=== PATIENT | male | born 1940 | race Caucasian/White ===

== ENCOUNTER → 2019-04-17 11:34 | Outpatient (CLI) | payer MEDICARE, SELFPAY ==
[2019-04-20 19:59] LABS: Lamotrigine Lamictal 4.4 mcg/mL (4.0-18.0)
== END ==
PROVIDERS: Visit Provider Specialist
DX: G40.109 Localization-related (focal) (partial) symptomatic epilepsy and epileptic syndromes with simple partial seizures, not intractable, without status epilepticus (principal)
CPT/HCPCS: 36415; 80175

== ENCOUNTER → 2020-01-09 10:46 | Outpatient (CLI) | payer MEDICARE, SELFPAY ==
--- NOTE | 2020-01-09 10:48 | DI.RAD.S_ITS ---
PROCEDURE: XR HIP W PEL IF DONE RT 2V INDICATIONS: r hip pain TECHNIQUE: AP view of the pelvis and frogleg lateral view of the right hip were acquired. COMPARISON: None. FINDINGS: Bones: There is mild spurring of the lateral acetabulum bilaterally, compatible with mild degenerative changes. Mild degenerative changes also seen in the included portion of the lower lumbar spine. The sacrum is obscured by overlying bowel gas. Soft tissues: No suspicious soft tissue calcifications or masses. Redundant colon is partially visualized with moderate stool and air-filled loops of bowel overlying the lower abdomen and pelvis. 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 No acute osseous abnormality is seen. Dictated by: Ger Awan M.D. on 01/09/2020 at 11:07 Approved by: Ger Awan M.D. on 01/09/2020 at 11:09
== END ==
PROVIDERS: Referring Provider Physician Assistant; Visit Provider Physician Assistant
DX: M25.551 Pain in right hip (principal); M16.0 Bilateral primary osteoarthritis of hip
CPT/HCPCS: 73502

== ENCOUNTER → 2020-03-09 12:36 | Outpatient (CLI) | payer MEDICARE, SELFPAY ==
--- NOTE | 2020-03-09 | DI.MRI.S_ITS ---
PROCEDURE: MR LUMBAR SPINE WO CON INDICATIONS: Radiculopathy, lumbar region TECHNIQUE: Noncontrast sagittal T1 spin echo and T2 fast echo, sagittal STIR, axial T1 and T2 fast spin echo through the lumbar spine. In cases with scoliosis, additional coronal T2 fast spin echo may be performed. COMPARISON: None. FINDINGS: Image quality: Diagnostic, with note made of motion artifact. Alignment and Curvature: There is normal bony alignment. Bone Marrow: Marrow is of normal overall signal. No acute vertebral body compression fractures. Spinal Cord: Conus medullaris terminates at the L1 level. Visualized cord demonstrates normal signal and size. Paraspinous Soft Tissues: No paravertebral masses. T12-L1: Normal appearance. L1-L2: Normal appearance. L2-L3: The disc height and disk signal are well-preserved. Mild generalized disc bulge is seen. Mild to moderate facet hypertrophy is seen. There is moderate left-sided and no right-sided neural foraminal narrowing seen. No significant central canal narrowing is seen. L3-L4: Moderate loss of disc height is seen. Loss of disc signal is seen. Moderate disc bulge is seen, with a central disc protrusion. Mild to moderate facet hypertrophy is seen at this level. There is at least moderate bilateral neural foraminal narrowing seen, right worse than left. There is a degree of compression seen upon the exiting nerve roots. Mild central canal narrowing is seen. L4-L5: Mild loss of disc height is seen. Loss of disc signal is seen. Mild to moderate disc bulge is seen, with a mild central disc protrusion. Mild to moderate facet hypertrophy is seen. There is at least moderate left-sided and moderate to severe right-sided neural foraminal narrowing seen. There is a degree of compression seen upon the exiting L4 nerve roots, right worse than left. Mild to moderate central canal narrowing is seen. L5-S1: The disc height is well-preserved. Loss of disc signal is seen at this level. Mild disc bulge is seen, with a mild central disc protrusion. Moderate facet joint hypertrophy is seen. There is at least moderate bilateral neural foraminal narrowing seen, left worse than right. Mild central canal narrowing is seen. IMPRESSION: Lower lumbar spine degenerative changes are seen, which are overall most prominent at L3-4 and L4-5. Dictated by: Ambrose Palomares M.D. on 03/09/2020 at 15:48 Approved by: Ambrose Palomaers M.D. on 03/09/2020 at 15:51
== END ==
PROVIDERS: Referring Provider Orthopaedic Surgery; Visit Provider Orthopaedic Surgery
DX: M47.26 Other spondylosis with radiculopathy, lumbar region (principal)
CPT/HCPCS: 72148

== ENCOUNTER → 2021-06-21 11:57 | Outpatient (CLI) | payer MEDICARE, SELFPAY ==
--- NOTE | 2021-06-21 | DI.MRI.S_ITS ---
PROCEDURE: MR HIP RT WO CON INDICATIONS: Non-Hodgkin lymphoma, unspecified, unspecified site TECHNIQUE: Noncontrast coronal T1 spin echo and STIR through the bony pelvis. Coronal and axial T2 fast spin echo with fat saturation, sagittal T1 spin echo, and oblique axial T2 fast spin echo with fat saturation through the hip. COMPARISON: None. FINDINGS: Image quality: Some images are degraded by motion artifact. Bones and joints: Heterogeneous bone marrow marrow of the pelvic ring and proximal femurs show throughout. No avascular necrosis of the femoral heads. Tendons and ligaments: The gluteus medius and minimus tendons appear intact, without associated muscle atrophy. T2 hyperintense signal within the gluteus medius musculotendinous junction, concerning for partial tear. Trace fluid adjacent to the greater trochanter, which may reflect minimal bursitis. The nearby proximal iliotibial band also appears intact. The iliopsoas tendon appears intact. The origin of the hamstring tendon is intact at the ischial tuberosity. T2 hyperintense signal is seen at the attachment, compatible with tendinopathy. The ligamentum teres appears intact where visualized. Labrum and cartilage: Linear signal within the superior anterior labrum, concerning for tear/degenerative change. Cartilage surface of the femoral head appears thinned. The alpha angle of the femur is within normal limits at less than 55 degrees. Soft tissues: Visualized muscles demonstrate normal bulk and internal signal. Quadratus femoris muscle demonstrates no internal edema to suggest ischiofemoral impingement. The proximal sciatic neurovascular bundle appears normal adjacent to the hamstring tendons. No free pelvic fluid. Bladder wall thickness is normal. Genitourinary structures and bowel loops appear normal where visualized. IMPRESSION: 1. Partial tear of the gluteus medius muscle as detailed above. 2. Mild hamstring tendinopathy at the ischial attachment. 3. Degenerative tear/change of the superior, anterior labrum. 4. Minimal greater trochanteric bursitis. Dictated by: Pee Brown M.D. on 06/21/2021 at 13:44 Approved by: Pee Brown M.D. on 06/21/2021 at 13:52
== END ==
PROVIDERS: PCP Internal Medicine; Referring Provider Orthopaedic Surgery; Visit Provider Orthopaedic Surgery
DX: C85.90 Non-Hodgkin lymphoma, unspecified, unspecified site (principal); S76.011A Strain of muscle, fascia and tendon of right hip, initial encounter; S73.191A Other sprain of right hip, initial encounter; M70.71 Other bursitis of hip, right hip
CPT/HCPCS: 73721

== ENCOUNTER → 2023-03-22 15:25 | Outpatient (ROUT) | payer MEDICARE, SELFPAY | PROVIDERS: PCP Internal Medicine; Visit Provider Dermatology | DX: Z48.02 Encounter for removal of sutures (principal) | CPT/HCPCS: 87070; 87075; 87077; 87186; 87205 ==

== ENCOUNTER 2025-04-17 10:52 | Observation (INO) | payer MEDICARE, SELFPAY ==
[2025-04-17] VITALS (14 sets, daily range): BP systolic 135–163; BP diastolic 72–81; PULSE 67–92; RESP 17–29; TEMP 36.4–36.8; O2SAT 88–97; BMI 23.7
--- NOTE | 2025-04-17 11:13 | DI.RAD.S_ITS ---
PROCEDURE: XR CHEST 1V INDICATIONS: Shortness of breath TECHNIQUE: One view of the chest was acquired. COMPARISON: None. FINDINGS: Surgical changes and devices: Right chest Port-A-Cath. Lungs and pleura: Moderate left pleural effusion with underlying left basilar atelectasis versus consolidation. Mediastinum: Mediastinal contours appear normal. Heart size is normal. Bones and chest wall: No suspicious bony lesions. Overlying soft tissues appear unremarkable. IMPRESSION: Moderate left pleural effusion with underlying left basilar atelectasis versus consolidation. Dictated by: Robin Moody M.D. on 04/17/2025 at 11:40 Approved by: Robin Moody M.D. on 04/17/2025 at 11:41
--- NOTE | 2025-04-17 11:13 | EKG_ITS ---
[address] [address] Test Date: 2025-04-17 Pat Name: Donal Echols Department: [facility] Room: Gender: Male Interactive [employer] Specialist: BENEDICTO : 1940 Requested By: Order Number: [id number] Reading MD: Kalpesh Ortega MD Measurements Intervals [place] Rate: 71 P: 53 [place]: 150 QRS: 46 QRSD: 94 T: 69 QT: 412 QTc: 447 Interpretive Statements Normal sinus rhythm Septal infarct , age undetermined Electronically Signed On 04-17-2025 14:36:43 PST by Kalpesh Ortega MD
[2025-04-17 11:18] LABS: Add Manual Diff / Slide Review NO; Hematocrit 37.7 % (41-53); Hemoglobin 12.8 g/dL (13.5-17.5); Lymphocytes Absolute Auto 1000 /uL (1100-4500); Mean Corpuscular HGB Conc 34.0 % (30-36); Mean Corpuscular Hemoglobin 29.5 PG (26-34); Mean Corpuscular Volume 86.8 fL (80-100); Platelet Count 334 X10^3/uL (150-400)
[2025-04-17 11:19] LABS: INR 1.1 (0.9-1.3); Prothrombin Time 12.3 SECONDS (9.4-12.5)
[2025-04-17 11:27] LABS: Alanine Aminotransferase 28 IU/L (<50); Alkaline Phosphatase 77 U/L (38-126); Blood Urea Nitrogen 20 mg/dL (9-20); Calcium 8.8 mg/dL (8.4-10.2); Chloride 101 mmol/L (98-107); Estimated Glomerular Filt Rate 57 mL/min (>60); Glucose 88 mg/dL (70-99); HEMOLYSIS < 15 (0-50); Lactate (Lactic Acid) 1.1 mmol/L (0.7-2.1); Potassium 4.2 mmol/L (3.4-5.1); Sodium 136 mmol/L (137-145); Total Protein 6.7 g/dL (6.3-8.2)
[2025-04-17 11:28] LABS: Albumin 3.8 g/dL (3.5-5.0); Albumin Globulin Ratio 1.3 (1.0-2.8); Carbon Dioxide 26 mmol/L (22-32); Globulin 2.9 g/dL (1.7-4.1)
[2025-04-17 11:39] LABS: NT-proBNP (BNP-Adult 18+) 128 pg/mL (<450); Troponin I < 0.012 ng/mL (0.01-0.034)
--- NOTE | 2025-04-17 11:51 | ED.SOB ---
HPI - SOB/Dyspnea <Holley Esteban PA-C - Last Filed: 04/17/25 14:51> General Chief Complaint: Shortness of Breath/Dyspnea Stated Complaint: SOB 2 weeks Time Seen by Provider: 04/17/25 10:53 Source: patient Mode of arrival: Ambulatory Limitations: no limitations History of Present Illness HPI Narrative: Mr. Echols is a very pleasant 84-year-old male with a past medical history of lymphoma in remission followed by [facility] Dr. 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 Patient reports he walks 2 miles every day and he noticed 2 weeks ago that he was starting to become more short of breath. Yesterday was the 1st day he was only able to do half of his normal walk. He also notices feeling short of breath when he bends/leans forward. He is not short of breath at rest. He does not have any issues lying flat. He has no leg swelling. He denies chest pain, fevers, chills or flu-like symptoms, he is occasionally coughing and clearing his throat. He denies abdominal pain nausea vomiting diarrhea constipation. He denies smoking, asthma or COPD, CAD or CVA history. No history of VTE or blood thinner use. No calf pain or swelling. Related Data Home Medications ?Medication ?Instructions ?Recorded ?Confirmed FLOMAX 0.4 mg PO DAILY ##0 06/17/07 04/17/25 Loratadine (Claritin) 10 mg PO .BROOKE ##0 06/17/07 04/17/25 vitamins A,C,N-jvmt-yhnyli 4,296 1 cap PO BID 10/04/17 04/17/25 mcg-226 mg-90 mg capsule (PreserVision AREDS) Simvastatin (Zocor) 20 mg PO DAILY ##0 01/09/20 04/17/25 lamotrigine 100 mg tablet 75 mg PO BID 01/09/20 04/17/25 Allergies Allergy/AdvReac Type Severity Reaction Status Date / Time No Known Drug Allergies Allergy Verified 04/17/25 11:06 Review of Systems <Holley Esteban PA-C - Last Filed: 04/17/25 14:51> Review of Systems ROS Unobtainable: All systems reviewed & are unremarkable except as noted in HPI and below Patient History <Holley Esteban PA-C - Last Filed: 04/17/25 14:51> Social History household members: spouse Smoking Status: Never smoker alcohol intake: current Smoking Status: Never smoker Exam <Holley Esteban PA-C - Last Filed: 04/17/25 14:51> Narrative Exam Narrative: GENERAL: 84 year old patient appears stated age. Well-developed patient, in no acute distress. HEAD: Atraumatic. Normocephalic. EYES: No scleral icterus. No injection or drainage. NECK: Trachea midline. Cervical ROM intact. CARDIOVASCULAR: Regular rate and rhythm. RESPIRATORY: ?Nonlabored respirations. ?Speaking in clear, full sentences. ?Diminished breath sounds left lower lobe. No wheezing, rales, or rhonchi. ? GASTROINTESTINAL: Abdomen soft, non-tender, nondistended. EXTREMITIES: No LE edema or calf tenderness. NEURO: AOx3. ?Clear speech. ?Moves all 4 extremities appropriately. SKIN: No rash or erythema of visible areas Initial Vital Signs Initial Vital Signs: Vital Signs Pulse Rate 86 04/17/25 10:59 Pulse Oximetry 93 04/17/25 10:59 <Halle Prasad DO - Last Filed: 04/17/25 18:52> Initial Vital Signs Initial Vital Signs: Vital Signs Pulse Rate 86 04/17/25 10:59 Pulse Oximetry 93 04/17/25 10:59 Course <Holley Esteban PA-C - Last Filed: 04/17/25 14:51> Orders Ordered: ED Orders 04/17/25 11:05 Complete Blood Count AUTO DIFF Stat Comprehensive Metabolic Panel Stat Lactate (Lactic Acid) Stat NT-proBNP (BNP-Adult 18+) Stat Prothrombin Time INR Stat Troponin I Stat 04/17/25 11:13 XR chest 1V Stat EKG-12 Lead Stat Measure peak expiratory flow STAT RT Consult Eval and Treat STAT 04/17/25 12:06 CT chest w con Stat 04/17/25 12:25 Urine Microscopic Stat Acetaminophen (Acetaminophen 325 Mg Tablet) 650 mg PO Q6H PRN PRN Reason: Fever/Mild Pain (1-3) Atorvastatin Calcium (Atorvastatin 20 Mg Tablet) 10 mg PO DAILY [facility] Lamotrigine (Lamotrigine 100 Mg Tablet) 75 mg PO BID [facility] Loratadine (Loratadine 10 Mg Tablet) 10 mg PO DAILY [facility] Naloxone HCl (Naloxone 0.4 Mg/Ml Vial) 0.2 mg IV Q2MIN PRN PRN Reason: Opiate Reversal Oxycodone HCl (Oxycodone Ir 5 Mg Tablet) 5 mg PO Q4HR [facility] Last Admin: 04/17/25 17:49 Dose: Not Given Documented By: MM Tamsulosin HCl (Tamsulosin 0.4 Mg Capsule) 0.4 mg PO DAILY [facility] Vital Signs Vital signs: Vital Signs - 8 hr 04/17/25 10:59 04/17/25 11:00 04/17/25 11:00 Temperature Pulse Rate 86 79 Respiratory Rate Blood Pressure 163/81 H Pulse Oximetry 93 94 Oxygen Delivery Method 04/17/25 11:05 04/17/25 11:30 04/17/25 11:30 Temperature 97.6 F Pulse Rate 81 72 Respiratory Rate 18 Blood Pressure 163/81 H 135/72 Pulse Oximetry 97 96 Oxygen Delivery Method Room Air 04/17/25 12:00 04/17/25 12:00 04/17/25 12:25 Temperature Pulse Rate 71 92 H Respiratory Rate 29 H 28 H Blood Pressure 141/76 H Pulse Oximetry 96 88 L Oxygen Delivery Method Room Air 04/17/25 12:30 04/17/25 13:00 04/17/25 13:30 Temperature Pulse Rate 72 69 71 Respiratory Rate 20 22 Blood Pressure Pulse Oximetry 96 97 97 Oxygen Delivery Method 04/17/25 14:00 04/17/25 14:30 04/17/25 15:00 Temperature Pulse Rate 67 69 78 Respiratory Rate 18 20 18 Blood Pressure Pulse Oximetry 95 97 96 Oxygen Delivery Method <Halle Prasad, - Last Filed: 04/17/25 18:52> Orders Ordered: ED Orders 04/17/25 11:05 Complete Blood Count AUTO DIFF Stat Comprehensive Metabolic Panel Stat Lactate (Lactic Acid) Stat NT-proBNP (BNP-Adult 18+) Stat Prothrombin Time INR Stat Troponin I Stat 04/17/25 11:13 XR chest 1V Stat EKG-12 Lead Stat Measure peak expiratory flow STAT RT Consult Eval and Treat STAT 04/17/25 12:06 CT chest w con Stat 04/17/25 12:25 Urine Microscopic Stat Acetaminophen (Acetaminophen 325 Mg Tablet) 650 mg PO Q6H PRN PRN Reason: Fever/Mild Pain (1-3) Atorvastatin Calcium (Atorvastatin 20 Mg Tablet) 10 mg PO DAILY [facility] Lamotrigine (Lamotrigine 100 Mg Tablet) 75 mg PO BID [facility] Loratadine (Loratadine 10 Mg Tablet) 10 mg PO DAILY [facility] Naloxone HCl (Naloxone 0.4 Mg/Ml Vial) 0.2 mg IV Q2MIN PRN PRN Reason: Opiate Reversal Oxycodone HCl (Oxycodone Ir 5 Mg Tablet) 5 mg PO Q4HR [facility] Last Admin: 04/17/25 17:49 Dose: Not Given Documented By: MM Tamsulosin HCl (Tamsulosin 0.4 Mg Capsule) 0.4 mg PO DAILY [facility] Vital Signs Vital signs: Vital Signs - 8 hr 04/17/25 10:59 04/17/25 11:00 04/17/25 11:00 Temperature Pulse Rate 86 79 Respiratory Rate Blood Pressure 163/81 H Pulse Oximetry 93 94 Oxygen Delivery Method 04/17/25 11:05 04/17/25 11:30 04/17/25 11:30 Temperature 97.6 F Pulse Rate 81 72 Respiratory Rate 18 Blood Pressure 163/81 H 135/72 Pulse Oximetry 97 96 Oxygen Delivery Method Room Air 04/17/25 12:00 04/17/25 12:00 04/17/25 12:25 Temperature Pulse Rate 71 92 H Respiratory Rate 29 H 28 H Blood Pressure 141/76 H Pulse Oximetry 96 88 L Oxygen Delivery Method Room Air 04/17/25 12:30 04/17/25 13:00 04/17/25 13:30 Temperature Pulse Rate 72 69 71 Respiratory Rate 20 22 Blood Pressure Pulse Oximetry 96 97 97 Oxygen Delivery Method 04/17/25 14:00 04/17/25 14:30 04/17/25 15:00 Temperature Pulse Rate 67 69 78 Respiratory Rate 18 20 18 Blood Pressure Pulse Oximetry 95 97 96 Oxygen Delivery Method MDM - SOB/Dyspnea <Holley Esteban PA-C - Last Filed: 04/17/25 14:51> Medical Records Attestation: I reviewed the patient's medical records. Lab Data 04/17/25 11:05 04/17/25 11:05 Labs: Lab Results 11/13/25 11/13/25 Range/Units 11:05 12:25 WBC 8.1 (4.5-11.0) X10^3/uL RBC 4.35 L (4.5-5.9) X10^6/uL Hgb 12.8 L (13.5-17.5) g/dL Hct 37.7 L (41-53) % MCV 86.8 (80-100) fL MCH 29.5 (26-34) PG MCHC 34.0 (30-36) % RDW 13.4 (11.6-14.8) % Plt Count 334 (150-400) X10^3/uL Neut % (Auto) 58.5 (50-75) % Lymph % (Auto) 12.3 L (25-40) % [place] % (Auto) 17.2 H (3-14) % Eos % (Auto) 10.5 H (2-4) % Baso % (Auto) 1.5 (0-2) % Neut # (Auto) 4800 (7207-5662) /uL Lymph # (Auto) 1000 L (5217-6865) /uL [place] # (Auto) 1400 H (0-900) /uL Eos # (Auto) 900 H (0-450) /uL Baso # (Auto) 100 (0-100) /uL PT 12.3 (9.4-12.5) SECONDS INR 1.1 (0.9-1.3) Sodium 136 L (137-145) mmol/L Potassium 4.2 (3.4-5.1) mmol/L Chloride 101 (98-107) mmol/L Carbon Dioxide 26 (22-32) mmol/L BUN 20 (9-20) mg/dL Creatinine 1.24 (0.66-1.25) mg/dL Estimated GFR 57 L (>60) mL/min BUN/Creatinine Ratio 16.1 (6-22) Glucose 88 (70-99) mg/dL Lactate 1.1 (0.7-2.1) mmol/L Calcium 8.8 (8.4-10.2) mg/dL Total Bilirubin 0.3 (0.2-1.3) mg/dL AST 41 (17-59) IU/L ALT 28 (<50) IU/L Alkaline Phosphatase 77 (38-126) U/L Troponin I < 0.012 (0.01-0.034) ng/mL NT-Pro-B Natriuret Pep 128 (<450) pg/mL Total Protein 6.7 (6.3-8.2) g/dL Albumin 3.8 (3.5-5.0) g/dL Globulin 2.9 (1.7-4.1) g/dL Albumin/Globulin Ratio 1.3 (1.0-2.8) Urine RBC None seen (0-5/HPF) Urine WBC 1-5/hpf (0-5/HPF) Ur Squamous Epith Cells None seen (0-5/HPF) Urine Bacteria None seen (None) Ur Culture Indicated? Cult not indicated Vol Urine Centrifuged 10ml (spun) Urine Dip Bedside Urine Glucose Negative Bedside Urine Bilirubin - Negative Bedside Urine Ketone - Negative Urine Specific [place] 1.015 Bedside Urine Occult Blood - Negative Bedside Urine pH 6.0 Bedside Urine Protein +/- 15 Bedside Urine Urobilinogen 0.2 Bedside Urine Nitrite - Negative Bedside Urine Leukocytes +/- 15 Esterase Imaging Data Chest x-ray: Radiologist's Impression: PROCEDURE: XR CHEST 1V INDICATIONS: Shortness of breath TECHNIQUE: One view of the chest was acquired. COMPARISON: None. FINDINGS: Surgical changes and devices: Right chest Port-A-Cath. Lungs and pleura: Moderate left pleural effusion with underlying left basilar atelectasis versus consolidation. Mediastinum: Mediastinal contours appear normal. Heart size is normal. Bones and chest wall: No suspicious bony lesions. Overlying soft tissues appear unremarkable. IMPRESSION: Moderate left pleural effusion with underlying left basilar atelectasis versus consolidation. Dictated by: Robin Moody M.D. on 04/17/2025 at 11:40 Approved by: Robin Moody M.D. on 04/17/2025 at 11:41 CT Chest: Radiologist's Impression: PROCEDURE: CT CHEST W CON INDICATIONS: L pleural effus on XR; SOB x 2 wks; hx lymphoma in remission TECHNIQUE: After the administration of intravenous contrast, 5 mm thick sections acquired from the pulmonary apices to the posterior costophrenic angles. 1 mm axial lung, 5 mm thick coronal and sagittal reformats and 7 mm axial MIP were acquired. For radiation dose reduction, the following was used: automated exposure control, adjustment of mA and/or kV according to patient size. COMPARISON: None. FINDINGS: Image quality: Excellent. Some images are limited by beam hardening artifacts. Moderate to large left pleural effusion with compressive atelectatic changes, collapse throughout the left lower lobe with minimal aerated left lower lobe superior segment. Mild atelectatic changes left upper lobe posteriorly. Right lung is relatively clear. Mildly enlarged mediastinal, prevascular, aortic or pulmonary, anterior tracheal, paratracheal, hilar lymph nodes partially obscured by pleural effusion and atelectasis the largest measuring up to 1 cm commonly reactive/inflammatory. No definitive pathologically enlarged nodes to suggest recurrence of reported history of lymphoma. 1 cm bilateral anterior chest wall subareolar soft tissue attenuation mild gynecomastia. Mild calcifications of the aortic arch. Small hiatal hernia with nonspecific wall thickening of the distal esophagus into the stomach, unchanged some of which may be artifact from partial nondistention although esophagitis, gastritis or other process could be considered. Trace nonspecific perihepatic fluid. Heterogeneous attenuation in the IVC most likely related to inter mixing of contrast enhanced and nonenhanced blood rather than filling defect or nonocclusive thrombus. 1 cm low-attenuation right lobe of the liver commonly hepatic cyst too small to characterize. IMPRESSION: Moderate to large left pleural effusion with atelectatic changes predominantly left lower lobe as discussed above. Mildly enlarged mediastinal lymph nodes as discussed above. Heterogeneous attenuation in the IVC more likely artifact than nonocclusive thrombus. Mild perihepatic ascites. Follow-up is needed Dictated by: Wilberto Garner M.D. on 04/17/2025 at 12:40 Approved by: Wilberto Garner M.D. on 04/17/2025 at 12:48 MDM Narrative Medical decision making narrative: 84-year-old male with a past medical history of lymphoma in remission followed by [facility] Dr. 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 Differential diagnosis includes but is not limited to bronchitis, pneumonia, CHF, pleural effusion, PE, etc. On exam the patient is in no acute distress, nontoxic-appearing, all vital signs within normal limits. He is not tachycardic or tachypneic, no retractions or respiratory distress. Lung sounds are diminished in the left lobe, no wheezing rales or rhonchi. No fevers or chills. Chest pain order set initiated in triage. Chest x-ray reveals moderate left pleural effusion with underlying left basilar atelectasis versus consolidation. Labs reveal normal WBC count 8.1, hemoglobin 12.8, platelets 334. Sodium 136, potassium 4.2, BUN 20 creatinine 1.24 with a GFR of 57, no priors for comparison. Normal LFTs. Negative/undetectable troponin, normal BNP 128. CT reveals moderate to large left pleural effusion with atelectatic changes predominantly left lower lobe, mildly enlarged mediastinal lymph nodes as discussed above largest measuring up to 1 cm commonly reactive/inflammatory, no definitive pathologically enlarged lymph nodes that suggest recurrence. Patient's oxygen saturation is normal at rest however he did dip to about 88% with ambulation. He would benefit from thoracentesis however Radiology is not available today, discussed the case with the hospitalist Dr. Erwin who graciously accepts the patient for observation and can hopefully have thoracentesis tomorrow with radiology. Patient is aware and agreeable to admission at this time and is stable for transfer to the floor. <Halle Prasad, DO - Last Filed: 04/17/25 18:52> Lab Data Labs: Lab Results 04/17/25 04/17/25 Range/Units 11:05 12:25 WBC 8.1 (4.5-11.0) X10^3/uL RBC 4.35 L (4.5-5.9) X10^6/uL Hgb 12.8 L (13.5-17.5) g/dL Hct 37.7 L (41-53) % MCV 86.8 (80-100) fL MCH 29.5 (26-34) PG MCHC 34.0 (30-36) % RDW 13.4 (11.6-14.8) % Plt Count 334 (150-400) X10^3/uL Neut % (Auto) 58.5 (50-75) % Lymph % (Auto) 12.3 L (25-40) % [place] % (Auto) 17.2 H (3-14) % Eos % (Auto) 10.5 H (2-4) % Baso % (Auto) 1.5 (0-2) % Neut # (Auto) 4800 (8399-3690) /uL Lymph # (Auto) 1000 L (5216-6974) /uL [place] # (Auto) 1400 H (0-900) /uL Eos # (Auto) 900 H (0-450) /uL Baso # (Auto) 100 (0-100) /uL PT 12.3 (9.4-12.5) SECONDS INR 1.1 (0.9-1.3) Sodium 136 L (137-145) mmol/L Potassium 4.2 (3.4-5.1) mmol/L Chloride 101 (98-107) mmol/L Carbon Dioxide 26 (22-32) mmol/L BUN 20 (9-20) mg/dL Creatinine 1.24 (0.66-1.25) mg/dL Estimated GFR 57 L (>60) mL/min BUN/Creatinine Ratio 16.1 (6-22) Glucose 88 (70-99) mg/dL Lactate 1.1 (0.7-2.1) mmol/L Calcium 8.8 (8.4-10.2) mg/dL Total Bilirubin 0.3 (0.2-1.3) mg/dL AST 41 (17-59) IU/L ALT 28 (<50) IU/L Alkaline Phosphatase 77 (38-126) U/L Troponin I < 0.012 (0.01-0.034) ng/mL NT-Pro-B Natriuret Pep 128 (<450) pg/mL Total Protein 6.7 (6.3-8.2) g/dL Albumin 3.8 (3.5-5.0) g/dL Globulin 2.9 (1.7-4.1) g/dL Albumin/Globulin Ratio 1.3 (1.0-2.8) Urine RBC None seen (0-5/HPF) Urine WBC 1-5/hpf (0-5/HPF) Ur Squamous Epith Cells None seen (0-5/HPF) Urine Bacteria None seen (None) Ur Culture Indicated? Cult not indicated Vol Urine Centrifuged 10ml (spun) Urine Dip Bedside Urine Glucose Negative Bedside Urine Bilirubin - Negative Bedside Urine Ketone - Negative Urine Specific [place] 1.015 Bedside Urine Occult Blood - Negative Bedside Urine pH 6.0 Bedside Urine Protein +/- 15 Bedside Urine Urobilinogen 0.2 Bedside Urine Nitrite - Negative Bedside Urine Leukocytes +/- 15 Esterase Discharge Plan Departure Patient Disposition: Admitted as Observation Clinical Impression: Pleural effusion, SIMMS (dyspnea on exertion) Admit Date/Time: 04/17/25 15:00 Admit Provider: Diego Erwin ED Sign-out <Halle Prasad DO - Last Filed: 04/17/25 18:52> Cosign ED Attending Cosignature Attestation: I was immediately available in the department for consultation. Case was discussed with the myself imaging and workup was reviewed plan for observation for thoracentesis as patient becomes hypoxic with a ambulation and fluid to be sent for evaluation as patient has a history of lymphoma.
--- NOTE | 2025-04-17 12:06 | DI.CT.S_ITS ---
PROCEDURE: CT CHEST W CON INDICATIONS: L pleural effus on XR; SOB x 2 wks; hx lymphoma in remission TECHNIQUE: After the administration of intravenous contrast, 5 mm thick sections acquired from the pulmonary apices to the posterior costophrenic angles. 1 mm axial lung, 5 mm thick coronal and sagittal reformats and 7 mm axial MIP were acquired. For radiation dose reduction, the following was used: automated exposure control, adjustment of mA and/or kV according to patient size. COMPARISON: None. FINDINGS: Image quality: Excellent. Some images are limited by beam hardening artifacts. Moderate to large left pleural effusion with compressive atelectatic changes, collapse throughout the left lower lobe with minimal aerated left lower lobe superior segment. Mild atelectatic changes left upper lobe posteriorly. Right lung is relatively clear. Mildly enlarged mediastinal, prevascular, aortic or pulmonary, anterior tracheal, paratracheal, hilar lymph nodes partially obscured by pleural effusion and atelectasis the largest measuring up to 1 cm commonly reactive/inflammatory. No definitive pathologically enlarged nodes to suggest recurrence of reported history of lymphoma. 1 cm bilateral anterior chest wall subareolar soft tissue attenuation mild gynecomastia. Mild calcifications of the aortic arch. Small hiatal hernia with nonspecific wall thickening of the distal esophagus into the stomach, unchanged some of which may be artifact from partial nondistention although esophagitis, gastritis or other process could be considered. Trace nonspecific perihepatic fluid. Heterogeneous attenuation in the IVC most likely related to inter mixing of contrast enhanced and nonenhanced blood rather than filling defect or nonocclusive thrombus. 1 cm low-attenuation right lobe of the liver commonly hepatic cyst too small to characterize. IMPRESSION: Moderate to large left pleural effusion with atelectatic changes predominantly left lower lobe as discussed above. Mildly enlarged mediastinal lymph nodes as discussed above. Heterogeneous attenuation in the IVC more likely artifact than nonocclusive thrombus. Mild perihepatic ascites. Follow-up is needed Dictated by: Wilberto Garner M.D. on 04/17/2025 at 12:40 Approved by: Wilberto Garner M.D. on 04/17/2025 at 12:48
[2025-04-17 13:03] LABS: Culture Indicated Urine Cult Not Indicated
--- NOTE | 2025-04-17 15:51 | PM.HP.1 ---
History of Present Illness History of Present Illness Date Patient Seen: 04/17/25 Time Patient Seen: 16:33 Chief complaint: SOB 2 weeks Narrative: Patient is a pleasant 84-year-old male who lives in [place] with his . He presents with 2 weeks of progressive dyspnea on exertion. The patient was seen in the ED, found to have a moderate pleural effusion. 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 In addition, he was treated for marginal cell lymphoma with declared remission about 2 years ago. He did have some lymphadenopathy on a CT today, deemed to be consistent with possible reactive lymphadenopathy. He denies any recent symptoms you of URI including count cough, fevers, chills. He also denies night sweats or weight loss, did not have either of these constitutional symptoms before that he remembers. He does have chronic leg edema and wears compression stocks stockings. He denies orthopnea, palpitations, or chest pain. 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 [facility] Social History Smoking Status: Never smoker Meds Home Medications and Allergies Home Medications ?Medication ?Instructions ?Recorded ?Confirmed ?Type Loratadine (Claritin) 10 mg PO ##0 06/17/07 01/09/20 History Tamsulosin Hydrochloride (Flomax) 0 PO * DOSE/FREQUENCY ##0 06/17/07 01/09/20 History cholecalciferol (vitamin D3) 50 2,000 unit PO DAILY 10/04/17 01/09/20 History mcg (2,000 unit) capsule vitamins A,C,F-kbuy-ciupdd 4,296 cap PO 10/04/17 11/09/18 History mcg-226 mg-90 mg capsule (PreserVision AREDS) Simvastatin (Zocor) 20 mg PO ##0 01/09/20 History lamotrigine 100 mg tablet 75 mg PO BID 01/09/20 01/09/20 History Allergies Allergy/AdvReac Type Severity Reaction Status Date / Time No Known Drug Allergies Allergy Verified 04/17/25 11:06 Review of Systems Review of Systems Narrative: All else reviewed and otherwise unremarkable except as noted in the history and physical. Exam Vital Signs (past 8 hours): - 04/17/25 10:59 04/17/25 11:00 04/17/25 11:00 Temperature Pulse Rate 86 79 Respiratory Rate Blood Pressure 163/81 H Pulse Oximetry 93 94 Oxygen Delivery Method 04/17/25 11:05 04/17/25 11:30 04/17/25 11:30 Temperature 97.6 F Pulse Rate 81 72 Respiratory Rate 18 Blood Pressure 163/81 H 135/72 Pulse Oximetry 97 96 Oxygen Delivery Method Room Air 04/17/25 12:00 04/17/25 12:00 04/17/25 12:25 Temperature Pulse Rate 71 92 H Respiratory Rate 29 H 28 H Blood Pressure 141/76 H Pulse Oximetry 96 88 L Oxygen Delivery Method Room Air 04/17/25 12:30 04/17/25 13:00 04/17/25 13:30 Temperature Pulse Rate 72 69 71 Respiratory Rate 20 22 Blood Pressure Pulse Oximetry 96 97 97 Oxygen Delivery Method 04/17/25 14:00 04/17/25 14:30 04/17/25 15:00 Temperature Pulse Rate 67 69 78 Respiratory Rate 18 20 18 Blood Pressure Pulse Oximetry 95 97 96 Oxygen Delivery Method Oxygen Delivery Method Room Air Narrative Exam Narrative: NAD, alert and oriented, fluent speech, calm. Normocephalic skull, EOMI, anicteric sclera, symmetric pupils. Oropharynx unremarkable, no droop. Neck supple, midline trachea, no adenopathy. Lungs clear, normal rate and effort. Heart regular, no murmur gallop or rub. Abdomen is soft, non distended and non tender. Extremities are free of edema. Skin is free of rash or lesions. Joints are not swollen or deformed. Judgment appears to be normal. Objective ECG Impression: Intervals [place] Rate: 71 P: 53 MD: 150 QRS: 46 QRSD: 94 T: 69 QT: 412 QTc: 447 Interpretive Statements Normal sinus rhythm Septal infarct , age undetermined Imaging Multiple studies:: Radiologist's impression: Chest CT: Moderate to large left pleural effusion with atelectatic changes predominantly left lower lobe as discussed above. Mildly enlarged mediastinal lymph nodes as discussed above. Heterogeneous attenuation in the IVC more likely artifact than nonocclusive thrombus. Mild perihepatic ascites. Follow-up is needed Chest x-ray: Moderate left pleural effusion with underlying left basilar atelectasis versus consolidation. Labs 04/17/25 11:05 04/17/25 11:05 Labs: Laboratory Results - last 24 hr 04/17/25 04/17/25 11:05 12:25 WBC 8.1 RBC 4.35 L Hgb 12.8 L Hct 37.7 L MCV 86.8 MCH 29.5 MCHC 34.0 RDW 13.4 Plt Count 334 Neut % (Auto) 58.5 Lymph % (Auto) 12.3 L [place] % (Auto) 17.2 H Eos % (Auto) 10.5 H Baso % (Auto) 1.5 Neut # (Auto) 4800 Lymph # (Auto) 1000 L [place] # (Auto) 1400 H Eos # (Auto) 900 H Baso # (Auto) 100 PT 12.3 INR 1.1 Sodium 136 L Potassium 4.2 Chloride 101 Carbon Dioxide 26 BUN 20 Creatinine 1.24 Estimated GFR 57 L BUN/Creatinine Ratio 16.1 Glucose 88 Lactate 1.1 Calcium 8.8 Total Bilirubin 0.3 AST 41 ALT 28 Alkaline Phosphatase 77 Troponin I < 0.012 NT-Pro-B Natriuret Pep 128 Total Protein 6.7 Albumin 3.8 Globulin 2.9 Albumin/Globulin Ratio 1.3 Urine RBC None seen Urine WBC 1-5/hpf Ur Squamous Epith Cells None seen Urine Bacteria None seen Ur Culture Indicated? Cult not indicated Vol Urine Centrifuged 10ml (spun) Assessment & Plan Assessment & Plan narrative: 1. Left pleural effusion, active. 2. Vasculitis, stable. 3. Seizure disorder, stable. 4. History of marginal cell lymphoma, said to be in remission for 2 years. PLAN: -diagnostic and therapeutic thoracentesis tomorrow. -usual medications tonight. Anticipate 1 midnight in the hospital, supports IP status. Full resuscitation is proxy decision maker. Time-Based Coding :: 35 min spent with patient and on the chart (including review of chart, obtaining history, exam, reviewing outside data, placing orders, documenting exam and treatment plan, and counseling patient) on 04/17. Quality MIPS - Admit I confirm the patient?s Advance Care Plan is present, Code status is documented, Surrogate decision maker is in patient?s record [If Yes, STOP here]: Yes MIPS - Meds 'Current medications' to include all prescriptions, [id number] products, herbals, cannabis/cannabidiol products, and vitamin/mineral/dietary (nutritional) supplements. I have utilized all available resources to obtain, update, or review the patient?s current medications. [If Yes, STOP here]: Yes
[2025-04-18] VITALS: BP 141/63; PULSE 81; RESP 16; TEMP 36.3; O2SAT 91
--- NOTE | 2025-04-18 | PATH_ITS ---
Note [facility] Accession Number: [id number] TESTS RESULT FLAG UNITS REF RANGE LAB Clinician Provided Cytology Information No. of containers..01 Other (Miscellaneous) Source: PLEURAL FLUID DIAGNOSIS: PLEURAL FLUID, THORACENTESIS. INCONCLUSIVE. FEW MESOTHELIAL CELLS ARE PRESENT IN A BACKGROUND OF INFLAMMATION WITH PROMINENT LYMPHOID POPULATION. IMMUNOSTAINS WILL BE PERFORMED FOR FURTHER CHARACTERIZATION AND RESULTS WILL FOLLOW IN AN ADDENDUM. THIS INTERPRETATION INCLUDES EVALUATION OF A CELL BLOCK. Pathologist ICD10: J90 Signed out by: Rigoberto Khan MD, Pathologist NPI- [id number] Performed by: Nathan Kaur, Canine Service Teacher ([facility]) Gross description: 60 CC, ORANGE, CLOUDY RECEIVED FRESH IN BLUE CAP CONTAINER. KWASI PADILLA 04/21/2025 1353 Local FLAG LEGEND: L-Low Normal,H-High Normal,LL-Alert Low,HH-Alert High <-Panic Low,>-Panic High,A-Abnormal,AA-Critical Abnormal Performed at: [address] [facility], [place] [address] Marquis Dukes MD, Performed at: [address], [place], [place] [id number] MD Marquis Dukes MD Phone: [phone]
--- NOTE | 2025-04-18 | DI.RAD.S_ITS ---
PROCEDURE: XR CHEST 1V INDICATIONS: POST THORACENTESIS TECHNIQUE: One view of the chest was acquired. COMPARISON: [facility], , XR CHEST 1V, 04/17/2025, 11:19. FINDINGS: Surgical changes and devices: Right chest wall port. Lungs and pleura: Moderate left pleural effusion. No pneumothorax. Mediastinum: Mediastinal contours appear normal. Heart size is normal. Bones and chest wall: No suspicious bony lesions. Overlying soft tissues appear unremarkable. IMPRESSION: No pneumothorax. Dictated by: Sebastian Reyes M.D. on 04/22/2025 at 15:29 Approved by: Sebastian Reyes M.D. on 04/22/2025 at 15:29
[2025-04-18 04:00] VITALS: BP 157/79; PULSE 79; RESP 19; TEMP 36.7; O2SAT 93
[2025-04-18 05:12] LABS: Add Manual Diff / Slide Review NO; Hematocrit 33.5 % (41-53); Hemoglobin 11.6 g/dL (13.5-17.5); Lymphocytes Absolute Auto 500 /uL (1100-4500); Mean Corpuscular HGB Conc 34.5 % (30-36); Mean Corpuscular Hemoglobin 29.9 PG (26-34); Mean Corpuscular Volume 86.7 fL (80-100); Platelet Count 285 X10^3/uL (150-400)
[2025-04-18 05:31] LABS: Blood Urea Nitrogen 19 mg/dL (9-20); Calcium 8.2 mg/dL (8.4-10.2); Carbon Dioxide 26 mmol/L (22-32); Chloride 103 mmol/L (98-107); Estimated Glomerular Filt Rate > 60 mL/min (>60); Glucose 86 mg/dL (70-99); HEMOLYSIS < 15 (0-50); Potassium 4.3 mmol/L (3.4-5.1); Sodium 134 mmol/L (137-145)
[2025-04-18 08:00] VITALS: BP 143/69; PULSE 83; RESP 18; TEMP 37.4; O2SAT 93
--- NOTE | 2025-04-18 08:00 | DI.US.S_ITS ---
PROCEDURE: US THORACENTESIS DIAGNOSTIC INDICATIONS: PLEURAL EFFUSION TECHNIQUE: The indications, alternatives, benefits, risks, and complications of the procedure were explained to the patient. Written informed consent was obtained and placed in the chart. The chest was examined sonographically, and an appropriate site was chosen for thoracentesis. The skin was prepared and draped in the usual sterile fashion, and 1% lidocaine was infiltrated from the skin down through the pleural surface. A 19- gauge catheter-covered needle was then introduced into the pleural space, the catheter was advanced and the needle was withdrawn, and thereafter pleural fluid was aspirated. The catheter was then removed and a dressing was applied. COMPARISON: None. FINDINGS: Access site: Left hemithorax. Needle: One-Step centesis catheter with introducer needle. Fluid volume and description: 1100 cc of mildly brownish colored pleural fluid. Fluid sent for diagnostic testing: Fluid sent for cytology, multiple chemistry panels and therapeutic drainage. Medications: 1% lidocaine for local anaesthesia. Complications: None; post-procedural chest radiograph is pending to assess for pneumothorax. IMPRESSION: Successful ultrasound-guided thoracentesis. Dictated by: Hermilo UNDERWOOD Interpreted: Bautista Khanna MD on 04/18/2025 at 11:47 Transcribed by: ABEL on 04/18/2025 at 11:48 Approved by: Bautista Khanna M.D. on 04/18/2025 at 12:13
[2025-04-18] MEDS: ATORVASTATIN 20 MG TABLET 10 MG PO (09:36)
--- NOTE | 2025-04-18 10:51 | PM.DS.1 ---
History of Present Illness History of Present Illness Chief complaint: SOB 2 weeks Narrative: Patient is a pleasant 84-year-old male who lives in [place] with his . He presents with 2 weeks of progressive dyspnea on exertion. The patient was seen in the ED, found to have a moderate pleural effusion. 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 In addition, he was treated for marginal cell lymphoma with declared remission about 2 years ago. He did have some lymphadenopathy on a CT today, deemed to be consistent with possible reactive lymphadenopathy. He denies any recent symptoms you of URI including count cough, fevers, chills. He also denies night sweats or weight loss, did not have either of these constitutional symptoms before that he remembers. He does have chronic leg edema and wears compression stocks stockings. He denies orthopnea, palpitations, or chest pain. 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 Discharge Providers Provider Date of admission: 04/17/25 15:00 Discharge Date: 04/18/25 Primary care physician: Savage Rivera MD Consults: None. Discharge provider: Diego Erwin MD Summary Hospital Course Discharge Diagnosis: 1. Left pleural effusion, improved 2. Vasculitis, stable. 3. Seizure disorder, stable. 4. History of marginal cell lymphoma, said to be in remission for 2 years. Hospital Course: He was admitted with dyspnea on exertion and hypoxemia. He was found to have a left pleural effusion with no history of. He underwent thoracentesis in the day of discharge with 1100 cc of mildly brown colored pleural fluid obtained and sent for cytology and additional studies. He has a history of marginal cell lymphoma which is said to be in remission. Patient felt well after procedure will be discharged with close follow up. He was studies will likely be pending for 3-5 days. He was followed by Dr. HOWIE Gleason [facility] and Dr. Rivera is his PCP. Status at Discharge Cognitive/behavioral status at discharge: oriented Functional status at discharge: independent ambulation Overall status at discharge: patient is back to baseline Time Spent with Patient Time spent: Greater than 30 minutes Exam Vital Signs (past 8 hours): - 04/18/25 04:00 04/18/25 08:00 Temperature 98.1 F 99.4 F Pulse Rate 79 83 Respiratory Rate 19 18 Blood Pressure 157/79 H 143/69 H Pulse Oximetry 93 93 Oxygen Flow Rate 0 Oxygen Delivery Method Room Air Oxygen Flow Rate 0 Narrative Exam Narrative: NAD, alert and oriented. Fluent speech. Lungs are clear, normal rate and effort. Heart is regular, no murmur gallop or rub. Abdomen is soft, non distended. Extremities are free of edema. Objective ECG Impression: Impression: Intervals [place] Rate: 71 P: 53 DC: 150 QRS: 46 QRSD: 94 T: 69 QT: 412 QTc: 447 Interpretive Statements Normal sinus rhythm Septal infarct , age undetermined Imaging Multiple studies:: Radiologist's impression: Chest CT: Moderate to large left pleural effusion with atelectatic changes predominantly left lower lobe as discussed above. Mildly enlarged mediastinal lymph nodes as discussed above. Heterogeneous attenuation in the IVC more likely artifact than nonocclusive thrombus. Mild perihepatic ascites. Follow-up is needed Chest x-ray: Moderate left pleural effusion with underlying left basilar atelectasis versus consolidation. Labs 04/18/25 04:37 04/18/25 04:37 Labs: Laboratory Results - last 24 hr 04/17/25 04/17/25 04/18/25 11:05 12:25 04:37 WBC 8.1 6.8 RBC 4.35 L 3.86 L Hgb 12.8 L 11.6 L Hct 37.7 L 33.5 L MCV 86.8 86.7 MCH 29.5 29.9 MCHC 34.0 34.5 RDW 13.4 13.2 Plt Count 334 285 Neut % (Auto) 58.5 60.5 Lymph % (Auto) 12.3 L 7.6 L [place] % (Auto) 17.2 H 16.0 H Eos % (Auto) 10.5 H 14.6 H Baso % (Auto) 1.5 1.3 Neut # (Auto) 4800 4100 Lymph # (Auto) 1000 L 500 L [place] # (Auto) 1400 H 1100 H Eos # (Auto) 900 H 1000 H Baso # (Auto) 100 100 PT 12.3 INR 1.1 Sodium 136 L 134 L Potassium 4.2 4.3 Chloride 101 103 Carbon Dioxide 26 26 BUN 20 19 Creatinine 1.24 1.09 Estimated GFR 57 L > 60 BUN/Creatinine Ratio 16.1 17.4 Glucose 88 86 Lactate 1.1 Calcium 8.8 8.2 L Total Bilirubin 0.3 AST 41 ALT 28 Alkaline Phosphatase 77 Troponin I < 0.012 NT-Pro-B Natriuret Pep 128 Total Protein 6.7 Albumin 3.8 Globulin 2.9 Albumin/Globulin Ratio 1.3 Urine RBC None seen Urine WBC 1-5/hpf Ur Squamous Epith Cells None seen Urine Bacteria None seen Ur Culture Indicated? Cult not indicated Vol Urine Centrifuged 10ml (spun) [facility] Social History household members: spouse Smoking Status: Never smoker alcohol intake: current Discharge Assessment & Plan Assessment and Plan Assessment: 1. Left pleural effusion, improved Plan of Treatment: Discharge home, waiting studies. We will notify Dr. Rivera and Howie of situation. Discharge Plan Discharge Plan Patient Disposition: Home Provider Discharge Comment: Stable for discharge home, close Follow up with PCP Discharge orders & Medications Prescriptions: Continued PreserVision AREDS [phone] opvo-oa-[id number] capsule 1 cap PO BID lamotrigine 100 mg tablet 75 mg PO BID FLOMAX 0.4 mg PO DAILY Qty: 0 Loratadine (Claritin) 10 mg PO .[place] Qty: 0 Simvastatin (Zocor) 20 mg PO DAILY Qty: 0 Medication counseling provided by Pharmacist: No Follow up/Referrals: Savage Rivera MD [Primary Care Provider, Medical] Discharge Health Status Multidrug resistant organism: No MDRO Diet/Activity/Treatments Diet: Diet as Tolerated Visit Report/Discharge Packet Instructions: DI for Shortness of Breath, Apixaban Stand Alone Forms: Patient Portal/API Discharge Data Primary Care Provider: Savage Rivera Attending Provider: Diego Erwin Admit Date/Time: 04/17/25 15:00 Quality VTE Deep Vein Thrombosis/Pulmonary Embolism Present on Admission: No
[2025-04-18 11:30] LABS: Body Fluid Tot Nucleated Cells 8993 /uL
[2025-04-18 11:34] LABS: Body Fluid Clotted? NO CLOTS PRESENT
--- NOTE | 2025-04-18 12:27 | PC.NURSE ---
Student RN Nadira removed PIV, pt tolerated well. Removed tele. Returned medications from nurse geophysical observer to pt and spouse. No belongings in safe or pharmacy. All VSWNL. Provided discharge education on symptoms worsening and follow up. Pt and spouse stated all questions answered. Pt escorted via WC by JARED Munoz to POV with spouse.
--- NOTE | 2025-04-18 13:09 | CM.DANOTE ---
Initial DCP Assessment Visit Note Reviewed EMR and team rounds for pt's medical status and updates. Pt resides independently with his spouse in their own home out on [address]. Pt was medically cleared for home d/c today, and this SALES CLERK was able to provide them with a Medical Priority Boarding Pass for his return home. No other CM d/c needs were identified during his stay. His spouse transported him home. Payor: Medicare PCP: Savage Humphriesnirmal Pt is a 84 year-old M who presented to the ED yesterday afternoon with complaints of worsening SOB, mostly with exertion, for the last 2-weeks. He shared that he is normally very active at baseline, walks at least 2-miles per day, however now is barely able to go on a walk at all due to breathlessness. Both the chest x-ray and chest CT confirmed a large L-sided pleural effusion. Plan was made to admit to [facility] for a planned thoracentesis in the am. This was completed, and pt shared feeling much better and ready for home d/c. Discharge Planning/Care Management CM Discharge Assessment Start: 04/17/25 15:34 Freq: Status: Discharge Protocol: Document 04/18/25 13:06 DPL (Rec: 04/18/25 13:09 DPL [id number]) Discharge Planning Assessment Assigned Discharge LIBORIO Snyder Sql Database Developer Insurance Medicare Advance Directives? Yes Advance Directives No on File History Provided By Patient,Family Member,Medical Record Has Patient been No admitted in last 30 days? Prior Living House Arrangements Household Members spouse Type of Drives own vehicle transporation used prior to admit Independent with ADL Yes 's Is patient alert and Yes oriented? Comment N/A Caregiver for No Another Comment No identified home d/c needs at this time. Barriers to No Discharge Discharge Plan Home Referrals Initiated None needed Whiteboard Updated Yes in Patient Room with name and ext. # of Transit Proof Machine Operator Review Status In Process Please Provide Date 04/18/25 Initial DC Assessment Was Performed
[2025-04-18 14:24] LABS: Lymphocytes Body Fluid 58 %; MESO/MACRO/MONO Body Fluid 41 %; Neutrophils Body Fluid 1 %
[2025-04-19 03:36] LABS: Labcorp Amylase, Body Fluid 37 U/L (.); Labcorp Total Prot, Body Fluid 4.3 g/dL (.)
[2025-04-19 04:08] LABS: Labcorp Glucose, Body Fluid <2 mg/dL (.)
[2025-04-19 05:10] LABS: Labcorp Albumin, Body Fluid 2.6 g/dL (Not Estab.); Labcorp LDH, Body Fluid 3473 IU/L (.)
== END 2025-04-18 12:39 | disposition home or self-care (01) ==
LOC: ED 14:50 → AC 15:01
PROVIDERS: Emergency Medicine; Admitting Provider Hospitalist; Emergency Provider Physician Assistant; PCP Internal Medicine; Referring Provider Physician Assistant; Visit Provider Hospitalist
DX: J90 Pleural effusion, not elsewhere classified (principal); G40.909 Epilepsy, unspecified, not intractable, without status epilepticus; I77.6 Arteritis, unspecified; C85.8A Other specified types of non-Hodgkin lymphoma, in remission; R59.1 Generalized enlarged lymph nodes; Z79.899 Other long term (current) drug therapy
CPT/HCPCS: 32555; 36415; 71045; 71260; 80048; 80053; 81003; 81015; 82040; 82150; 82945; 83605; 83615; 83880; 84157; 84484; 85025; 85610; 87070; 87075; 87205; 89051; 93005; 99284; G0378; Q9967

== ENCOUNTER 2025-04-28 08:35 | Emergency (ER) | payer MEDICARE, SELFPAY ==
[2025-04-17 16:45] VITALS: BMI 23.7
[2025-04-28] VITALS (7 sets, daily range): BP systolic 122–152; BP diastolic 60–72; PULSE 64–78; RESP 16–27; TEMP 36.4; O2SAT 85–97; BMI 24.7
--- NOTE | 2025-04-28 08:57 | DI.RAD.S_ITS ---
PROCEDURE: XR CHEST 2V INDICATIONS: SOB/reports he needs a thoracentesis-he had one 1.5weeks ago TECHNIQUE: 2 views of the chest were acquired. COMPARISON: [facility], , XR CHEST 1V, 04/18/2025, 10:21 FINDINGS: Surgical changes and devices: Right chest Port-A-Cath in stable position.. Lungs and pleura: Moderate left pleural effusion has mildly increased when compared to the prior exam with associated left basilar atelectasis. Right lung is clear. Mediastinum: Mediastinal contours are normal. Heart size is normal. Bones and chest wall: No suspicious bony abnormalities. Soft tissues appear unremarkable. IMPRESSION: Mildly increased moderate left pleural effusion. Approved by: Ger Awan M.D. on 04/28/2025 at 9:23
--- NOTE | 2025-04-28 09:14 | ED.SOB ---
HPI - SOB/Dyspnea General Chief Complaint: Shortness of Breath/Dyspnea Stated Complaint: SOB, per patient needs thoracentesis Time Seen by Provider: 04/28/25 09:02 Source: patient Mode of arrival: Ambulatory History of Present Illness HPI Narrative: Patient 84-year-old male history of lymphoma with recent pleural effusion presenting today with increasing shortness of breath. He has a thoracentesis on 04/18/2025 and feels like he is short of breath again. They removed 1100 cc and sent it down for diagnostics. He reports that over last couple of days increasing shortness of breath with exertion. Feels like the fluid is back. He thinks it is recurrence of lymphoma has yet to meet with Oncology. Denies any fever chills or chest pain. Related Data Home Medications ?Medication ?Instructions ?Recorded ?Confirmed FLOMAX 0.4 mg PO DAILY ##0 06/17/07 04/17/25 Loratadine (Claritin) 10 mg PO .BROOKE ##0 06/17/07 04/17/25 vitamins A,C,F-cvpe-zajgou 4,296 1 cap PO BID 10/04/17 04/17/25 mcg-226 mg-90 mg capsule (PreserVision AREDS) Simvastatin (Zocor) 20 mg PO DAILY ##0 01/09/20 04/17/25 lamotrigine 100 mg tablet 75 mg PO BID 01/09/20 04/17/25 Allergies Allergy/AdvReac Type Severity Reaction Status Date / Time No Known Drug Allergies Allergy Verified 04/28/25 08:49 Patient History Social History household members: spouse Smoking Status: Never smoker alcohol intake: current Smoking Status: Never smoker Exam Initial Vital Signs Initial Vital Signs: Vital Signs Temperature 97.5 F L 04/28/25 08:49 Pulse Rate 78 04/28/25 08:49 Respiratory Rate 16 04/28/25 08:49 Blood Pressure 135/67 04/28/25 08:49 Pulse Oximetry 96 04/28/25 08:49 Oxygen Delivery Method Room Air 04/28/25 08:49 GENERAL: Alert pleasant well-appearing 84-year-old and in no acute distress. HEENT: Head atraumatic,EOMI, pupils reactive, face symmetric, moist mucous membranes CARDIOVASCULAR: Regular rate and rhythm without murmurs, rubs or gallops. RESPIRATORY: Decreased breath sounds left side no conversational dyspnea ABDOMEN: Soft, nontender. Normoactive bowel sounds all 4 quadrants. No guarding or rebound. EXTREMITIES: Normal range of motion, no clubbing or edema. Neurovascularly intact NEUROLOGICAL: Alert and oriented x4.Normal gait and speech. SKIN: Warm, dry, no laceration, no petechiae, no rashes or lesions. Course Orders Ordered: ED Orders 04/28/25 08:57 Chest [XR chest 2V] Stat 04/28/25 09:16 US thoracentesis Stat 04/28/25 11:10 Chest [XR chest 1V] Stat Vital Signs Vital signs: Vital Signs - 8 hr 04/28/25 08:49 04/28/25 09:33 04/28/25 09:34 Temperature 97.5 F L Pulse Rate 78 Respiratory Rate 16 Blood Pressure 135/67 152/72 H Pulse Oximetry 96 85 L Oxygen Delivery Method Room Air 04/28/25 09:34 04/28/25 10:00 04/28/25 10:00 Temperature Pulse Rate 74 73 Respiratory Rate 27 H Blood Pressure 124/60 Pulse Oximetry 94 96 Oxygen Delivery Method 04/28/25 10:30 04/28/25 10:30 04/28/25 11:00 Temperature Pulse Rate 70 71 Respiratory Rate 25 H 24 Blood Pressure 122/62 Pulse Oximetry 96 97 Oxygen Delivery Method 04/28/25 11:00 Temperature Pulse Rate Respiratory Rate Blood Pressure 130/65 Pulse Oximetry Oxygen Delivery Method MDM - SOB/Dyspnea Imaging Data Chest x-ray: Radiologist's Impression: PROCEDURE: XR CHEST 2V INDICATIONS: SOB/reports he needs a thoracentesis-he had one 1.5weeks ago TECHNIQUE: 2 views of the chest were acquired. COMPARISON: [facility], , XR CHEST 1V, 04/18/2025, 10:21 FINDINGS: Surgical changes and devices: Right chest Port-A-Cath in stable position.. Lungs and pleura: Moderate left pleural effusion has mildly increased when compared to the prior exam with associated left basilar atelectasis. Right lung is clear. Mediastinum: Mediastinal contours are normal. Heart size is normal. Bones and chest wall: No suspicious bony abnormalities. Soft tissues appear unremarkable. IMPRESSION: Mildly increased moderate left pleural effusion. Approved by: Ger Awan M.D. on 04/28/2025 at 9:23 CX 2: Radiologist's Impression: PROCEDURE: XR CHEST 1V INDICATIONS: post thora TECHNIQUE: One view of the chest was acquired. COMPARISON: [facility], CR, XR CHEST 1V, 04/18/2025, 10:21. [facility], CR, XR CHEST 1V, 04/17/2025, 11:19. FINDINGS: Surgical changes and devices: None. Lungs and pleura: Moderate left pleural effusion has mildly decreased in size, with left basilar atelectasis. Right lung is clear. No pneumothorax. Mediastinum: Mediastinal contours appear normal. Heart size is normal. Bones and chest wall: No suspicious bony lesions. Overlying soft tissues appear unremarkable. IMPRESSION: Status post thoracentesis with decreased moderate left pleural effusion. No pneumothorax. Approved by: Ger Awan M.D. on 04/28/2025 at 11:29 MDM Narrative Medical decision making narrative: 84-year-old male with history of lymphoma with recent left pleural effusion presents today with increasing shortness of breath with exertion. Chest x-ray shows recurrent of pleural effusion. Blood work initially ordered but then canceled radiology reports blood work from 10 days ago is sufficient. He is not on any anticoagulation. Radiology consulted who did do the thoracentesis I removed the catheter about 1300 cc removed. Patient tolerated procedure very well. Repeat x-ray shows no complication and improve pleural effusion. Discharge Plan Departure Patient Disposition: Home Clinical Impression: Pleural effusion Instructions: Pleural Effusion Activity Restrictions/Additional Instructions: *You have been diagnosed with pleural effusion *What to do: At this time please follow-up with your oncologist. If you are able to schedule regular thoracentesis as an outpatient that is better however we are happy to have you and help you here in the emergency department *Continue to take medications as directed *Follow up with your primary care provider in 2-3 days or call [phone] *Return to ER if you should have increasing chest pain shortness of breath weakness fever [or] any new, worsening or concerning symptoms Prescriptions: No Action PreserVision AREDS [id number] capsule 1 cap PO BID lamotrigine 100 mg tablet 75 mg PO BID FLOMAX 0.4 mg PO DAILY Qty: 0 Loratadine (Claritin) 10 mg PO .BROOKE Qty: 0 Simvastatin (Zocor) 20 mg PO DAILY Qty: 0 Referrals: Savage Rivera MD [Primary Care Provider, Medical] Stand Alone Forms: Patient Portal/API
--- NOTE | 2025-04-28 09:16 | DI.US.S_ITS ---
PROCEDURE: US THORACENTESIS INDICATIONS: pleural effusion TECHNIQUE: The indications, alternatives, benefits, risks, and complications of the procedure were explained to the patient. Written informed consent was obtained and placed in the chart. The chest was examined sonographically, and an appropriate site was chosen for thoracentesis. The skin was prepared and draped in the usual sterile fashion, and 1% lidocaine was infiltrated from the skin down through the pleural surface. A 19- gauge catheter-covered needle was then introduced into the pleural space, the catheter was advanced and the needle was withdrawn, and thereafter pleural fluid was aspirated. The catheter was then removed and a dressing was applied. COMPARISON: Ultrasound-guided thoracentesis on 04/18/2025. FINDINGS: Access site: Left hemithorax. Needle: One-Step centesis catheter with introducer needle. Fluid volume and description: 1300 cc, an additional 50 cc was sent for diagnostic evaluation per patient's outside requesting oncologist. Fluid sent for diagnostic testin cc Medications: 1% lidocaine for local anaesthesia. Complications: None; post-procedural chest radiograph is pending to assess for pneumothorax. IMPRESSION: Successful ultrasound-guided left thoracentesis. Dictated by: Jacob Lubin M.D. on 04/28/2025 at 12:42 Approved by: Jacob Lubin M.D. on 04/28/2025 at 12:43
--- NOTE | 2025-04-28 10:17 | PC.NURSE ---
Pt has known pleural effusion per bedside report. US and MD at bedside for thoracentesis. Nursing assessment deferred due to timing of care. Please see MD assessment for Pt initial respiratory status.
--- NOTE | 2025-04-28 11:10 | DI.RAD.S_ITS ---
PROCEDURE: XR CHEST 1V INDICATIONS: post thora TECHNIQUE: One view of the chest was acquired. COMPARISON: [facility], CR, XR CHEST 1V, 04/18/2025, 10:21. [facility], CR, XR CHEST 1V, 04/17/2025, 11:19. FINDINGS: Surgical changes and devices: None. Lungs and pleura: Moderate left pleural effusion has mildly decreased in size, with left basilar atelectasis. Right lung is clear. No pneumothorax. Mediastinum: Mediastinal contours appear normal. Heart size is normal. Bones and chest wall: No suspicious bony lesions. Overlying soft tissues appear unremarkable. IMPRESSION: Status post thoracentesis with decreased moderate left pleural effusion. No pneumothorax. Approved by: Ger Awan M.D. on 04/28/2025 at 11:29
== END 2025-04-28 11:44 | disposition home or self-care (01) ==
PROVIDERS: Emergency Provider Emergency Medicine; PCP Internal Medicine
DX: J90 Pleural effusion, not elsewhere classified (principal); Z85.72 Personal history of non-Hodgkin lymphomas
CPT/HCPCS: 32555; 71045; 71046; 88184; 99281; 99284